=== PATIENT | male | born 1935 | race Caucasian/White ===

== ENCOUNTER 2019-02-07 16:24 | Inpatient (IN) | payer BC, MEDICARE ==
[2019-02-07] MEDS: SOD CHLORIDE 0.9% 1,000 ML IV (16:54)
[2019-02-07 17:21] LABS: ADD MAN DIFF? NO
[2019-02-07 17:42] LABS: ALANINE AMINOTRANSFERASE 38 IU/L (13-69); ALBUMIN 4.3 g/dl (3.3-4.9); ALBUMIN/GLOBULIN RATIO 1.19; ALKALINE PHOSPHATASE 76 IU/L (42-121); ANION GAP 10 (5-13); ASPARTATE AMINO TRANSFERASE 35 IU/L (15-46); BILIRUBIN,INDIRECT 0.8 mg/dl (0-1.1); BILIRUBIN,TOTAL 0.8 mg/dl (0.2-1.3); BLOOD UREA NITROGEN 20 mg/dl (7-20); CALCIUM 9.8 mg/dl (8.4-10.2); CARBON DIOXIDE 27 mmol/L (21-31); CHLORIDE 103 mmol/L (97-110); CREATININE 0.96 mg/dl (0.61-1.24); GLUCOSE 131 mg/dl (70-220); POTASSIUM 3.6 mmol/L (3.5-5.1); SODIUM 140 mmol/L (135-144); TOTAL PROTEIN 7.9 g/dl (6.1-8.1)
[2019-02-07 17:43] LABS: INR 0.93; PROTIME 12.6 Sec (11.9-14.9)
[2019-02-07 17:54] LABS: TROPONIN-I < 0.012 ng/ml (0.000-0.120)
[2019-02-07 18:24] LABS: BASOPHILS % 0.3 % (0.0-2.0); EOSINOPHILS % 0.1 % (0.0-7.0); HEMATOCRIT 39.6 % (42.0-52.0); HEMOGLOBIN 13.4 g/dl (14.0-18.0); LYMPHOCYTES % 8.9 % (15.0-51.0); MEAN CORPUSCULAR HEMOGLOBIN 31.4 pg (29.0-33.0); MEAN CORPUSCULAR HGB CONC 33.8 g/dl (32.0-37.0); MEAN CORPUSCULAR VOLUME 92.7 fl (82.0-101.0); MEAN PLATELET VOLUME 10.9 fl (7.4-10.4); MONOCYTE # 0.8 10^3/ul (0.3-0.9); MONOCYTES % 7.4 % (0.0-11.0); NEUTROPHIL # 9.2 10^3/ul (1.6-7.5); NEUTROPHILS % 82.9 % (39.0-77.0); PLATELET COUNT 155 10^3/UL (140-415); RED BLOOD COUNT 4.27 10^6/ul (4.70-6.10); RED CELL DISTRIBUTION WIDTH 12.3 % (11.5-14.5)
[2019-02-07 18:24] LABS: WHITE BLOOD COUNT 11.1 10^3/ul (4.8-10.8)
[2019-02-07] MEDS: CEFTRIAXONE 1 GM/50 ML (PMX) 50 ML IVPB (18:24)
[2019-02-07 18:50] LABS: ADD UMIC NO; UR ASCORBIC ACID 20 mg/dL (NEGATIVE); UR BILIRUBIN (Dip) NEGATIVE (NEGATIVE); UR BLOOD (Dip) NEGATIVE (NEGATIVE); UR CLARITY CLEAR (CLEAR); UR COLOR YELLOW (YELLOW); UR GLUCOSE (Dip) 1+ mg/dL (NEGATIVE); UR KETONES (Dip) NEGATIVE (NEGATIVE); UR LEUKOCYTE ESTERASE (Dip) NEGATIVE Leu/ul (NEGATIVE); UR NITRITE (Dip) NEGATIVE (NEGATIVE); UR SPECIFIC GRAVITY (Dip) 1.015 (1.003-1.030); UR TOTAL PROTEIN (Dip) NEGATIVE (NEGATIVE); UR UROBILINOGEN (Dip) NEGATIVE (NEGATIVE)
[2019-02-07] MEDS: AZITHROMYCIN 500MG/NS (PMX) 250 ML IV (18:53)
[2019-02-07] MEDS ORDERED: ONDANSETRON 4 MG INJ IV ×2 (19:00→21:00)
[2019-02-07] MEDS ORDERED: SOD CHLORIDE 0.9% 1,000 ML IV (19:00)
[2019-02-07] MEDS ORDERED: ACETAMINOPHEN 325 MG TAB PO (19:00)
[2019-02-07] MEDS ORDERED: NACL 0.9% 3 ML SYG IV (21:00)
[2019-02-07] MEDS ORDERED: morphine 2 MG INJ IV (21:00)
[2019-02-07] MEDS ORDERED: MAGNESIUM HYDROXIDE 30ML CUP PO (21:00)
[2019-02-07] MEDS ORDERED: HYDROCODONE/APAP (5/325) TAB PO (21:00)
[2019-02-07] MEDS ORDERED: ALBUTEROL/IPRATROPIUM (NEB) 3 ML AMP HHN (21:00)
[2019-02-07] MEDS ORDERED: LORAZEPAM 2 MG INJ IV (21:00)
[2019-02-07] MEDS ORDERED: DOCUSATE SODIUM 100 MG CAP PO (21:00)
[2019-02-07] MEDS ORDERED: NON-FORMULARY/PATIENT OWN MED (Simvastatin* (Zocor*) 40 MG) PO (21:00)
[2019-02-07] MEDS ORDERED: NITROGLYCERIN (SL) 0.4 MG TAB SL (21:00)
[2019-02-07] MEDS: ACETAMINOPHEN 325 MG TAB PO (22:26)
[2019-02-07] MEDS: SOD CHLORIDE 0.45% 1,000 ML IV (22:50)
[2019-02-07 23:23] LABS: FREE T4 (FREE THYROXINE) 1.14 ng/dl (0.85-1.93)
[2019-02-07] MEDS: HEPARIN 5,000 UNIT/1 ML VIAL SC (23:27)
[2019-02-08 06:41] LABS: ADD MAN DIFF? NO
[2019-02-08 06:54] LABS: BASOPHILS % 0.5 % (0.0-2.0); EOSINOPHILS # 0.1 10^3/ul (0.0-0.5); EOSINOPHILS % 0.7 % (0.0-7.0); HEMOGLOBIN 12.3 g/dl (14.0-18.0); LYMPHOCYTES # 1.6 10^3/ul (0.8-2.9); LYMPHOCYTES % 18.6 % (15.0-51.0); MEAN CORPUSCULAR HEMOGLOBIN 31.5 pg (29.0-33.0); MEAN CORPUSCULAR HGB CONC 33.2 g/dl (32.0-37.0); MEAN CORPUSCULAR VOLUME 94.9 fl (82.0-101.0); MEAN PLATELET VOLUME 11.5 fl (7.4-10.4); MONOCYTE # 0.6 10^3/ul (0.3-0.9); MONOCYTES % 6.7 % (0.0-11.0); NEUTROPHIL # 6.4 10^3/ul (1.6-7.5); NEUTROPHILS % 73.2 % (39.0-77.0); POSITIVE DIFF @See below; RED CELL DISTRIBUTION WIDTH 12.5 % (11.5-14.5)
[2019-02-08 06:54] LABS: WHITE BLOOD COUNT 8.8 10^3/ul (4.8-10.8)
[2019-02-08 07:07] LABS: PLATELET COUNT 116 10^3/UL (140-415)
[2019-02-08 07:14] LABS: HEMOGLOBIN A1C 5.2 % (0-5.9)
[2019-02-08 07:28] LABS: ANION GAP 5 (5-13); BLOOD UREA NITROGEN 19 mg/dl (7-20); CALCIUM 9.1 mg/dl (8.4-10.2); CARBON DIOXIDE 27 mmol/L (21-31); CHLORIDE 108 mmol/L (97-110); CHOLESTEROL 95 mg/dl (100-200); CREATININE 0.95 mg/dl (0.61-1.24); GLUCOSE 95 mg/dl (70-220); HDL CHOLESTEROL 31 mg/dl (31-75); LDL CHOLESTEROL,CALCULATED 43 mg/dl; PHOSPHORUS 2.9 mg/dl (2.5-4.9); POTASSIUM 3.7 mmol/L (3.5-5.1); SODIUM 140 mmol/L (135-144); TRIGLYCERIDES 107 mg/dl (0-149)
[2019-02-08 07:57] LABS: THYROID STIMULATING HORMONE 0.563 MIU/L (0.465-4.680)
[2019-02-08] MEDS ORDERED: NON-FORMULARY/PATIENT OWN MED (Losartan-Hydrochlorothiazide (Losartan-HCTZ) 1 TAB) PO (09:00)
[2019-02-08] MEDS: ASPIRIN (EC) 81 MG TAB PO (09:07)
[2019-02-08] MEDS: ALLOPURINOL 100 MG TAB PO (09:07)
[2019-02-08] MEDS: HYDROCHLOROTHIAZIDE 25 MG TAB PO (09:08)
[2019-02-08] MEDS: LOSARTAN 50 MG TAB PO (09:09)
[2019-02-08] MEDS: LEVOFLOXACIN 750MG/D5W (PMX) 150 ML IVPB (09:09)
[2019-02-08] MEDS: HEPARIN 5,000 UNIT/1 ML VIAL SC ×2 (09:40→22:18)
[2019-02-08] MEDS: SOD CHLORIDE 0.45% 1,000 ML IV (10:09)
[2019-02-08] MEDS: hydrALAzine 20 MG INJ IV (15:13)
[2019-02-08] MEDS: ACETAMINOPHEN 325 MG TAB PO (19:44)
[2019-02-08] MEDS ORDERED: ATROPINE 1 MG/10 ML SYRINGE IV (21:30)
[2019-02-08] MEDS: ATORVASTATIN 20 MG TAB PO (21:40)
[2019-02-08] MEDS: POTASSIUM CHLORIDE (SR) 20 MEQ TAB PO (21:40)
[2019-02-09 06:30] LABS: ADD MAN DIFF? NO
[2019-02-09 06:40] LABS: WHITE BLOOD COUNT 7.7 10^3/ul (4.8-10.8)
[2019-02-09 06:40] LABS: BASOPHIL # 0.1 10^3/ul (0.0-0.1); BASOPHILS % 0.9 % (0.0-2.0); EOSINOPHILS # 0.1 10^3/ul (0.0-0.5); EOSINOPHILS % 1.4 % (0.0-7.0); HEMATOCRIT 39.8 % (42.0-52.0); HEMOGLOBIN 13.5 g/dl (14.0-18.0); LYMPHOCYTES # 1.6 10^3/ul (0.8-2.9); MEAN CORPUSCULAR HEMOGLOBIN 31.5 pg (29.0-33.0); MEAN CORPUSCULAR HGB CONC 33.9 g/dl (32.0-37.0); MEAN PLATELET VOLUME 10.8 fl (7.4-10.4); MONOCYTE # 0.7 10^3/ul (0.3-0.9); MONOCYTES % 8.8 % (0.0-11.0); NEUTROPHIL # 5.2 10^3/ul (1.6-7.5); NEUTROPHILS % 67.5 % (39.0-77.0); PLATELET COUNT 149 10^3/UL (140-415); RED BLOOD COUNT 4.28 10^6/ul (4.70-6.10); RED CELL DISTRIBUTION WIDTH 12.1 % (11.5-14.5)
[2019-02-09 06:58] LABS: ANION GAP 7 (5-13); BLOOD UREA NITROGEN 17 mg/dl (7-20); CALCIUM 9.1 mg/dl (8.4-10.2); CARBON DIOXIDE 25 mmol/L (21-31); CHLORIDE 109 mmol/L (97-110); CREATININE 0.99 mg/dl (0.61-1.24); GLUCOSE 98 mg/dl (70-220); POTASSIUM 3.6 mmol/L (3.5-5.1); SODIUM 141 mmol/L (135-144)
[2019-02-09] MEDS: ALLOPURINOL 100 MG TAB PO (09:18)
[2019-02-09] MEDS: HYDROCHLOROTHIAZIDE 25 MG TAB PO (09:18)
[2019-02-09] MEDS: ASPIRIN (EC) 81 MG TAB PO (09:18)
[2019-02-09] MEDS: LOSARTAN 50 MG TAB PO (09:18)
[2019-02-09] MEDS: CLOTRIMAZOLE 1% 30 GM CR TOP (09:19)
[2019-02-09] MEDS: HEPARIN 5,000 UNIT/1 ML VIAL SC (09:23)
[2019-02-09] MEDS ORDERED: DAKINS 0.0125%(1/40) 473 ML SOLUTION TP (13:30)
[2019-02-09 15:12] LABS: RAPID PLASMA REAGIN NONREACTIVE (NR)
== END 2019-02-09 18:00 | disposition home health service (06) | DRG 56 ==
LOC: E/R 16:24 → TEL 19:00
PROVIDERS: Hospitalist
DX: G30.9 Alzheimer's disease, unspecified (principal); J18.9 Pneumonia, unspecified organism; G93.40 Encephalopathy, unspecified; I10 Essential (primary) hypertension; R00.1 Bradycardia, unspecified; F02.80 Dementia in other diseases classified elsewhere, unspecified severity, without behavioral disturbance, psychotic disturbance, mood disturbance, and anxiety; B35.1 Tinea unguium; L60.2 Onychogryphosis
CPT/HCPCS: 36415; 70450; 71045; 80048; 80053; 80061; 81003; 82607; 83036; 83605; 83735; 84100; 84439; 84443; 84484; 85025; 85610; 85730; 86592; 87040-91; 87086; 93005; 93306; 93970; 96374; 96375; 97116; 97161; 97530; 99285-25